=== PATIENT | female | born 1965 | race Two or more races ===

== ENCOUNTER 2020-01-10 14:36 | Inpatient (IN) | payer BC, MEDICAID ==
[~2020-01-10] VITALS: Ht 154.9 cm; Wt 100.9 kg
--- NOTE | 2020-01-10 14:46 | NUR ---
PT 83% IN TRIAGE, PUT ON 5L NC NOW AT 95%
[2020-01-10] MEDS ORDERED: ACETAMINOPHEN 500 MG TABLET ONE (15:22)
[2020-01-10] MEDS ORDERED: DEXAMETHASONE 4 MG/ML, 1ML ONE (15:22)
[2020-01-10] MEDS ORDERED: CEFTRIAXONE PMX 1GM/50ML 50 ML ONE (15:24)
[2020-01-10] MEDS ORDERED: DOXYCYCLINE 100MG TABLET ONE (15:25)
[2020-01-10] MEDS ORDERED: ONDANSETRON 2MG/ML, 2ML ONE (15:28)
[2020-01-10] MEDS ORDERED: MORPHINE SULFATE 4 MG/ML, 1ML ONE (15:28)
[2020-01-10] MEDS ORDERED: ACETAMINOPHEN 500 MG TABLET PO ONE (15:30)
[2020-01-10] MEDS ORDERED: DEXAMETHASONE 4 MG/ML, 1ML IVPush ONE (15:30)
[2020-01-10] MEDS ORDERED: ONDANSETRON 2MG/ML, 2ML IVPush ONE (15:30)
[2020-01-10] MEDS ORDERED: MORPHINE SULFATE 4 MG/ML, 1ML IVPush ONE (15:30)
[2020-01-10] MEDS ORDERED: CEFTRIAXONE PMX 1GM/50ML 50 ML IV ONE (15:30)
[2020-01-10] MEDS ORDERED: DOXYCYCLINE 100MG TABLET PO ONE (15:30)
[2020-01-10] MEDS ORDERED: SODIUM CHLORIDE 0.9% 1,000ML IVBOLUS ONE (15:30)
--- NOTE | 2020-01-10 15:54 | NUR ---
PT BIB POV. PT REPORTS HAVING FEVER AND N/V/D. PT ALSO REPORTS HAVING +COVID TEST LAST SUNDAY. PT ALSO IS HAVING 9/10 ABD PAIN IN ALL QUADRANTS. PT RESTING IN GURNEY, PT O2 SAT IS CURRENTLY 93% ON 5L NC. PER PT NO NEEDS AT THIS TIME.
[2020-01-10 16:01] LABS: ALANINE AMINOTRANSFERASE 26 U/L (12-78); ALBUMIN 2.9 g/dL (3.4-5.0); ANION GAP 8 mmol/L (5-15); CALCIUM 8.9 mg/dL (8.5-10.1); CHLORIDE 107 mmol/L (98-107); CREATININE 0.58 mg/dL (0.55-1.02)
[2020-01-10 16:08] LABS: ALKALINE PHOSPHATASE 103 U/L (45-117); BILIRUBIN,TOTAL 0.6 mg/dL (0.2-1.0); TOTAL PROTEIN 7.2 g/dL (6.4-8.2)
[2020-01-10 16:19] LABS: BASOPHILS % (AUTO) 0 % (0-1); EOSINOPHILS % (AUTO) 0 % (1-7); LYMPHOCYTES % (AUTO) 8 % (22-44); MEAN CORPUSCULAR HEMOGLOBIN 27.8 pg (27.0-34.8); MEAN CORPUSCULAR HGB CONC 33.1 g/dL (32.4-35.8); MEAN PLATELET VOLUME 8.5 fL (7.4-10.4); MONOCYTES % (AUTO) 7 % (2-9); NEUTROPHILS % (AUTO) 86 % (42-75); PLATELET COUNT 250 x10^3/uL (130-400); RED BLOOD COUNT 4.71 x10^6/uL (3.82-5.3); RED CELL DISTRIBUTION WIDTH 17.3 % (9.6-15.2)
[2020-01-10 16:29] LABS: D-DIMER (DIC) 0.33 ug/mlFEU (0.00-0.52)
[2020-01-10] MEDS ORDERED: ENOXAPARIN 40 MG/0.4 ML SQ SCH (16:30)
[2020-01-10] MEDS ORDERED: POTASSIUM CHLORIDE 20 MEQ TAB.ER.PRT PO ONE (16:30)
[2020-01-10] MEDS ORDERED: ACETAMINOPHEN 325 MG TABLET PO PRN (16:30)
[2020-01-10] MEDS: DEXAMETHASONE 4 MG/ML, 1ML IVPush SCH (16:30)
[2020-01-10] MEDS ORDERED: ONDANSETRON 2MG/ML, 2ML IVPush PRN (16:30)
[2020-01-10] MEDS ORDERED: ONDANSETRON ODT 4 MG PO PRN (16:30)
[2020-01-10] MEDS ORDERED: TRAZODONE 50MG TABLET PO PRN (16:30)
[2020-01-10] MEDS ORDERED: ENOXAPARIN 40 MG/0.4 ML ONE (16:46)
[2020-01-10] MEDS ORDERED: POTASSIUM CHLORIDE 20 MEQ TAB.ER.PRT ONE (16:47)
[2020-01-10] MEDS ORDERED: BENZONATATE 100 MG CAPSULE ONE (16:47)
[2020-01-10] MEDS ORDERED: GUAIFENESIN 200 MG TABLET ONE ×2 (16:48→20:33)
[2020-01-10] MEDS: GUAIFENESIN 200 MG TABLET PO SCH ×2 (16:54→20:39)
[2020-01-10] MEDS: BENZONATATE 100 MG CAPSULE PO SCH (16:54)
[2020-01-10 17:10] LABS: MD NO
[2020-01-10] MEDS ORDERED: REMDESIVIR 200 MG in SODIUM CHLORIDE 0.9% 250 ML IVPB ONE (17:30)
[2020-01-10] MEDS ORDERED: ASCORBIC ACID 500 MG TABLET ONE (17:31)
[2020-01-10] MEDS: ASCORBIC ACID 500 MG TABLET PO SCH (17:36)
[2020-01-10] MEDS ORDERED: DIPHENOXYLATE/ATROPINE TABLET PO PRN (18:30)
[2020-01-10] MEDS: ENOXAPARIN 30 MG/0.3 ML SQ SCH (18:30)
[2020-01-10] MEDS ORDERED: GABA300C PO (19:23)
[2020-01-10] MEDS ORDERED: BUPR75TA6 PO (19:23)
[2020-01-10] MEDS ORDERED: ESCI10TA PO (19:23)
[2020-01-10] MEDS ORDERED: SACU1TAB7 PO (19:23)
--- NOTE | 2020-01-10 19:37 | NUR ---
PT RESTING IN GURNEY, NO NEEDS AT THIS TIME. NO CONC SWEETS DIET MEAL PROVIDED TO PT.
--- NOTE | 2020-01-10 20:09 | NUR ---
PATIENT AMBUATORY IN ROOM TO COMMODE
[2020-01-10] MEDS ORDERED: MELATONIN 5 MG TABLET ONE (20:33)
[2020-01-10] MEDS: MELATONIN 5 MG TABLET PO SCH (20:39)
[2020-01-10] MEDS: INSULIN LISPRO 100 UNITS/ML, PEN SQ-INSULIN SCH (21:09)
--- NOTE | 2020-01-10 21:35 | NUR ---
ATTEMPTED TO GIVE REPORT TO DARELL, PER [employer], SHE IS UNAVAILABLE CURRENTLY. WILL ATTEMPT TO CALL AGAIN IN 10 MINUTES.
--- NOTE | 2020-01-10 21:46 | NUR ---
ATTEMPTED TO CALL JENNA LOZOYA AGAIN. PER CHANGE LEAD RN STILL UNAVAILABLE.
--- NOTE | 2020-01-10 22:01 | NUR ---
ATTEMPTED TO CALL REPORT TO JENNA LOZOYA. PLACED ON HOLD FOR EXTENDED TIME, WILL ATTEMPT TO CALL AGAIN.
--- NOTE | 2020-01-10 22:05 | NUR ---
PER LORI YUAN HE WILL TRANSFER ME TO CHARGE NURSE TO GIVE REPORT. PLACED ON HOLD FOR OVER 5 MINUTES. CALLED BACK, PER KWABENA CHARGE NURSE IS BUSY, KWABENA WILL TRY AND FIND SOMEONE ELSE TO GIVE REPORT TO.
--- NOTE | 2020-01-10 22:16 | NUR ---
REPORT CALLED AND GIVEN TO JENNA LOZOYA.
[2020-01-10 22:55] VITALS: BP 129/70
[2020-01-10] MEDS ORDERED: OMEP20CA20 PO (23:34)
[2020-01-10] MEDS ORDERED: ROSU20TA29 PO (23:34)
[2020-01-10] MEDS ORDERED: IBUP-1223 PO (23:34)
[2020-01-10] MEDS ORDERED: AMIT25TA PO (23:34)
[2020-01-10] MEDS ORDERED: CANA1TAB8 PO (23:34)
[2020-01-10] MEDS ORDERED: TORS5TAB4 PO (23:34)
[2020-01-11] MEDS: BENZONATATE 100 MG CAPSULE PO SCH ×3 (01:17→17:47)
[2020-01-11 02:11] VITALS: BP 120/66
[2020-01-11] MEDS: DEXAMETHASONE 4 MG/ML, 1ML IVPush SCH ×2 (04:30→17:47)
[2020-01-11 05:41] LABS: BASOPHILS % (AUTO) 0 % (0-1); EOSINOPHILS % (AUTO) 0 % (1-7); LYMPHOCYTES % (AUTO) 11 % (22-44); MEAN CORPUSCULAR HEMOGLOBIN 27.7 pg (27.0-34.8); MEAN CORPUSCULAR HGB CONC 32.5 g/dL (32.4-35.8); MEAN PLATELET VOLUME 8.3 fL (7.4-10.4); MONOCYTES % (AUTO) 7 % (2-9); NEUTROPHILS % (AUTO) 82 % (42-75); PLATELET COUNT 245 x10^3/uL (130-400); RED BLOOD COUNT 4.56 x10^6/uL (3.82-5.3); RED CELL DISTRIBUTION WIDTH 17.2 % (9.6-15.2)
[2020-01-11 05:44] LABS: INTERNATIONAL NORMALIZED RATIO 0.94 (0.93-1.1)
[2020-01-11 05:49] LABS: ALBUMIN 2.5 g/dL (3.4-5.0); ANION GAP 5 mmol/L (5-15); CALCIUM 8.6 mg/dL (8.5-10.1); CHLORIDE 113 mmol/L (98-107); MD NO
[2020-01-11 05:52] LABS: ALANINE AMINOTRANSFERASE 24 U/L (12-78); ALKALINE PHOSPHATASE 94 U/L (45-117); BILIRUBIN,TOTAL 0.4 mg/dL (0.2-1.0); CREATININE 0.51 mg/dL (0.55-1.02); TOTAL PROTEIN 6.5 g/dL (6.4-8.2)
[2020-01-11] MEDS: GUAIFENESIN 200 MG TABLET PO SCH ×4 (06:24→20:41)
[2020-01-11] MEDS: ENOXAPARIN 30 MG/0.3 ML SQ SCH ×2 (06:25→18:12)
[2020-01-11] MEDS: INSULIN LISPRO 100 UNITS/ML, PEN SQ-INSULIN SCH ×4 (06:29→20:42)
[2020-01-11 07:54] VITALS: BP 139/61
[2020-01-11] MEDS ORDERED: GABAPENTIN 300 MG CAPSULE PO PRN (08:00)
[2020-01-11] MEDS ORDERED: IBUPROFEN 800 MG TABLET PO PRN (08:00)
[2020-01-11] MEDS: METFORMIN HCL PO SCH ×2 (09:00→20:42)
[2020-01-11] MEDS: CANAGLIFLOZIN PO SCH ×2 (09:00→20:42)
[2020-01-11] MEDS: ASCORBIC ACID 500 MG TABLET PO SCH ×2 (10:04→18:00)
[2020-01-11] MEDS: OMEPRAZOLE 20 MG CAPSULE.DR PO SCH (10:05)
[2020-01-11] MEDS: CHOLECALCIFEROL 5,000u TAB PO SCH (10:05)
[2020-01-11] MEDS: TORSEMIDE 20 MG TABLET PO SCH (10:05)
[2020-01-11] MEDS: ESCITALOPRAM 10MG TABLET PO SCH (10:05)
[2020-01-11] MEDS: ZINC SULFATE 220 MG CAPSULE PO SCH (10:44)
[2020-01-11] MEDS: BUPROPION 75 MG TABLET PO SCH ×2 (10:44→20:41)
[2020-01-11 14:08] VITALS: BP 118/66
[2020-01-11] MEDS: CEFTRIAXONE PMX 2GM/50ML 50 ML IVPB SCH (18:13)
[2020-01-11 19:17] VITALS: BP 131/77
[2020-01-11 19:25] VITALS: BP 153/80
[2020-01-11] MEDS: AZITHROMYCIN 500 MG in SODIUM CHLORIDE 0.9% 250 ML IV SCH (20:22)
[2020-01-11] MEDS: AMITRIPTYLINE 25 MG TABLET PO SCH (20:41)
[2020-01-11] MEDS: MELATONIN 5 MG TABLET PO SCH (20:41)
[2020-01-11] MEDS: REMDESIVIR 100 MG in SODIUM CHLORIDE 0.9% 250 ML IVPB SCH (22:09)
[2020-01-12] MEDS: BENZONATATE 100 MG CAPSULE PO SCH ×3 (00:30→16:14)
[2020-01-12] MEDS: DEXAMETHASONE 4 MG/ML, 1ML IVPush SCH ×2 (04:24→16:14)
[2020-01-12 04:29] VITALS: BP 109/45
[2020-01-12] MEDS: GUAIFENESIN 200 MG TABLET PO SCH ×4 (06:13→20:04)
[2020-01-12] MEDS: ENOXAPARIN 30 MG/0.3 ML SQ SCH ×2 (06:14→17:33)
[2020-01-12 07:09] VITALS: BP 120/62
[2020-01-12] MEDS: ASCORBIC ACID 500 MG TABLET PO SCH ×2 (08:25→16:14)
[2020-01-12] MEDS: TORSEMIDE 20 MG TABLET PO SCH (08:25)
[2020-01-12] MEDS: BUPROPION 75 MG TABLET PO SCH ×2 (08:25→20:04)
[2020-01-12] MEDS: ZINC SULFATE 220 MG CAPSULE PO SCH (08:26)
[2020-01-12] MEDS: CHOLECALCIFEROL 5,000u TAB PO SCH (08:26)
[2020-01-12] MEDS: OMEPRAZOLE 20 MG CAPSULE.DR PO SCH (08:26)
[2020-01-12] MEDS: ESCITALOPRAM 10MG TABLET PO SCH (08:26)
[2020-01-12] MEDS: INSULIN LISPRO 100 UNITS/ML, PEN SQ-INSULIN SCH ×4 (08:36→20:04)
[2020-01-12] MEDS: METFORMIN HCL PO SCH ×2 (08:36→20:05)
[2020-01-12] MEDS: CANAGLIFLOZIN PO SCH ×2 (08:36→20:05)
[2020-01-12 12:06] VITALS: BP 103/60
[2020-01-12] MEDS: CEFTRIAXONE PMX 2GM/50ML 50 ML IVPB SCH (17:32)
[2020-01-12 19:19] VITALS: BP 125/70
[2020-01-12] MEDS: AZITHROMYCIN 500 MG in SODIUM CHLORIDE 0.9% 250 ML IV SCH (20:04)
[2020-01-12] MEDS: AMITRIPTYLINE 25 MG TABLET PO SCH (20:04)
[2020-01-12] MEDS: MELATONIN 5 MG TABLET PO SCH (20:04)
[2020-01-12] MEDS: REMDESIVIR 100 MG in SODIUM CHLORIDE 0.9% 250 ML IVPB SCH (23:07)
[2020-01-13] MEDS: BENZONATATE 100 MG CAPSULE PO SCH ×3 (00:30→16:39)
[2020-01-13 01:07] VITALS: BP 111/67
[2020-01-13] MEDS: DEXAMETHASONE 4 MG/ML, 1ML IVPush SCH ×2 (04:28→16:39)
[2020-01-13] MEDS: GUAIFENESIN 200 MG TABLET PO SCH ×4 (06:00→20:29)
[2020-01-13] MEDS: ENOXAPARIN 30 MG/0.3 ML SQ SCH ×2 (06:00→17:41)
[2020-01-13 07:52] VITALS: BP 134/68
[2020-01-13] MEDS: OMEPRAZOLE 20 MG CAPSULE.DR PO SCH (08:23)
[2020-01-13] MEDS: INSULIN LISPRO 100 UNITS/ML, PEN SQ-INSULIN SCH ×4 (08:23→20:29)
[2020-01-13] MEDS: ASCORBIC ACID 500 MG TABLET PO SCH ×2 (08:23→16:39)
[2020-01-13] MEDS: TORSEMIDE 20 MG TABLET PO SCH (08:23)
[2020-01-13] MEDS: CANAGLIFLOZIN PO SCH ×2 (08:24→20:30)
[2020-01-13] MEDS: METFORMIN HCL PO SCH ×2 (08:24→20:30)
[2020-01-13] MEDS: CHOLECALCIFEROL 5,000u TAB PO SCH (08:24)
[2020-01-13] MEDS: ZINC SULFATE 220 MG CAPSULE PO SCH (08:24)
[2020-01-13] MEDS: BUPROPION 75 MG TABLET PO SCH ×2 (08:24→20:29)
[2020-01-13] MEDS: ESCITALOPRAM 10MG TABLET PO SCH (08:24)
[2020-01-13 12:33] VITALS: BP 131/78
[2020-01-13 14:05] LABS: ALBUMIN 2.9 g/dL (3.4-5.0); ANION GAP 12 mmol/L (5-15); CALCIUM 9.1 mg/dL (8.5-10.1); CHLORIDE 109 mmol/L (98-107)
[2020-01-13 14:08] LABS: ALANINE AMINOTRANSFERASE 28 U/L (12-78); ALKALINE PHOSPHATASE 105 U/L (45-117); BILIRUBIN,TOTAL 0.5 mg/dL (0.2-1.0); CREATININE 0.85 mg/dL (0.55-1.02); TOTAL PROTEIN 7.3 g/dL (6.4-8.2)
[2020-01-13] MEDS: CEFTRIAXONE PMX 2GM/50ML 50 ML IVPB SCH (16:39)
[2020-01-13 18:25] VITALS: BP 146/77
[2020-01-13] MEDS: AZITHROMYCIN 500 MG in SODIUM CHLORIDE 0.9% 250 ML IV SCH (20:28)
[2020-01-13] MEDS: MELATONIN 5 MG TABLET PO SCH (20:29)
[2020-01-13] MEDS: AMITRIPTYLINE 25 MG TABLET PO SCH (20:29)
[2020-01-13] MEDS: REMDESIVIR 100 MG in SODIUM CHLORIDE 0.9% 250 ML IVPB SCH (23:01)
[2020-01-14] MEDS: BENZONATATE 100 MG CAPSULE PO SCH ×3 (00:30→16:01)
[2020-01-14 00:50] VITALS: BP 109/63
[2020-01-14] MEDS: DEXAMETHASONE 4 MG/ML, 1ML IVPush SCH ×2 (04:17→16:01)
[2020-01-14] MEDS: GUAIFENESIN 200 MG TABLET PO SCH ×4 (05:57→20:07)
[2020-01-14] MEDS: ENOXAPARIN 30 MG/0.3 ML SQ SCH ×2 (05:57→18:44)
[2020-01-14 07:17] VITALS: BP 115/63
[2020-01-14] MEDS: CANAGLIFLOZIN PO SCH ×2 (09:00→20:07)
[2020-01-14] MEDS: METFORMIN HCL PO SCH ×2 (09:00→20:07)
[2020-01-14] MEDS: ASCORBIC ACID 500 MG TABLET PO SCH ×2 (09:26→16:01)
[2020-01-14] MEDS: ESCITALOPRAM 10MG TABLET PO SCH (09:26)
[2020-01-14] MEDS: BUPROPION 75 MG TABLET PO SCH ×2 (09:26→20:07)
[2020-01-14] MEDS: TORSEMIDE 20 MG TABLET PO SCH (09:28)
[2020-01-14] MEDS: OMEPRAZOLE 20 MG CAPSULE.DR PO SCH (09:28)
[2020-01-14] MEDS: ZINC SULFATE 220 MG CAPSULE PO SCH (09:29)
[2020-01-14] MEDS: CHOLECALCIFEROL 5,000u TAB PO SCH (09:29)
[2020-01-14] MEDS: INSULIN LISPRO 100 UNITS/ML, PEN SQ-INSULIN SCH ×4 (09:57→21:44)
[2020-01-14 11:19] LABS: ALANINE AMINOTRANSFERASE 33 U/L (12-78); ALBUMIN 2.8 g/dL (3.4-5.0); ANION GAP 11 mmol/L (5-15); CALCIUM 8.8 mg/dL (8.5-10.1); CHLORIDE 108 mmol/L (98-107); CREATININE 0.65 mg/dL (0.55-1.02)
[2020-01-14 11:21] LABS: ALKALINE PHOSPHATASE 95 U/L (45-117); BILIRUBIN,TOTAL 0.5 mg/dL (0.2-1.0); TOTAL PROTEIN 6.8 g/dL (6.4-8.2)
[2020-01-14 12:16] VITALS: BP_SYST 136
[2020-01-14] MEDS: CEFTRIAXONE PMX 2GM/50ML 50 ML IVPB SCH (16:01)
[2020-01-14 20:00] VITALS: BP 124/70
[2020-01-14] MEDS: AZITHROMYCIN 500 MG in SODIUM CHLORIDE 0.9% 250 ML IV SCH (20:06)
[2020-01-14] MEDS: MELATONIN 5 MG TABLET PO SCH (20:07)
[2020-01-14] MEDS: AMITRIPTYLINE 25 MG TABLET PO SCH (20:07)
[2020-01-14] MEDS ORDERED: REMDESIVIR 100 MG in SODIUM CHLORIDE 0.9% 250 ML IVPB ONE (23:00)
[2020-01-15] MEDS: BENZONATATE 100 MG CAPSULE PO SCH ×3 (00:49→16:32)
[2020-01-15 01:13] VITALS: BP 134/64
[2020-01-15] MEDS: DEXAMETHASONE 4 MG/ML, 1ML IVPush SCH ×2 (03:45→16:32)
[2020-01-15] MEDS: GUAIFENESIN 200 MG TABLET PO SCH ×3 (06:17→16:31)
[2020-01-15] MEDS: ENOXAPARIN 30 MG/0.3 ML SQ SCH (06:17)
[2020-01-15] MEDS ORDERED: ENOXAPARIN 30 MG/0.3 ML ONE (06:30)
[2020-01-15 08:00] VITALS: BP 120/73
[2020-01-15] MEDS: BUPROPION 75 MG TABLET PO SCH (08:08)
[2020-01-15] MEDS: OMEPRAZOLE 20 MG CAPSULE.DR PO SCH (08:08)
[2020-01-15] MEDS: ASCORBIC ACID 500 MG TABLET PO SCH ×2 (08:08→16:32)
[2020-01-15] MEDS: ESCITALOPRAM 10MG TABLET PO SCH (08:09)
[2020-01-15] MEDS: ZINC SULFATE 220 MG CAPSULE PO SCH (08:10)
[2020-01-15] MEDS: TORSEMIDE 20 MG TABLET PO SCH (08:10)
[2020-01-15] MEDS: CHOLECALCIFEROL 5,000u TAB PO SCH (08:10)
[2020-01-15] MEDS: METFORMIN HCL PO SCH (08:10)
[2020-01-15] MEDS: CANAGLIFLOZIN PO SCH (08:10)
[2020-01-15] MEDS: INSULIN LISPRO 100 UNITS/ML, PEN SQ-INSULIN SCH ×3 (08:38→16:38)
[2020-01-15] MEDS ORDERED: CHOL500045 PO (13:12)
[2020-01-15] MEDS ORDERED: DEXA6TAB6 PO (13:12)
[2020-01-15] MEDS ORDERED: ASCO500T9 PO (13:12)
[2020-01-15] MEDS ORDERED: MELA5TAB14 PO (13:12)
[2020-01-15] MEDS ORDERED: ZINC220C7 PO (13:12)
[2020-01-15 14:10] VITALS: BP 116/67
== END 2020-01-15 17:27 | disposition home or self-care (01) | DRG 177 ==
LOC: ED 15:10 → EDIP 16:07 → SUATTDRO 16:14 → 4EST 22:30
PROVIDERS: ADMIT Internal Medicine; ATTEND Internal Medicine
PROC: XW033E5 Introduction of Remdesivir Anti-infective into Peripheral Vein, Percutaneous Approach, New Technology Group 5 (ICD-10-PCS; principal; 2020-01-11)
DX: U07.1 COVID-19 (principal); J12.89 Other viral pneumonia; J96.01 Acute respiratory failure with hypoxia; E11.9 Type 2 diabetes mellitus without complications; E87.6 Hypokalemia; I11.0 Hypertensive heart disease with heart failure; I50.9 Heart failure, unspecified; M06.9 Rheumatoid arthritis, unspecified
CPT/HCPCS: 36415; 71045; 80053; 82728; 82962; 83036; 83605; 83615; 83735; 84145; 85025; 85049; 85379; 85384; 85610; 85730; 86140; 87040; 93005; 96372; 96374; 96375; 99291; G0378; J0456; J0696; J1100; J1650; J2405; J1815; J2270; J7030; J7050

== ENCOUNTER 2020-01-26 17:53 | Inpatient (IN) | payer BC ==
[~2020-01-26] VITALS: Ht 165.1 cm; Wt 99.0 kg
[~2020-01-26 17:53] MED LIST: AMIT25TA PO; ASCO500T9 PO; BUPR75TA6 PO; CANA1TAB8 PO; CHOL500045 PO; DEXA6TAB6 PO; ESCI10TA PO; GABA300C PO; IBUP-1223 PO; MELA5TAB14 PO; OMEP20CA20 PO; ROSU20TA29 PO; SACU1TAB7 PO; TORS5TAB4 PO; ZINC220C7 PO
--- NOTE | 2020-01-26 18:10 | NUR ---
Bib by luis from home for increased confusion/weakness. Known + covid and diabetic Luis reports A+Ox1, Hr 130, fsbs "high" On arrival patient knows name and wher she is. Hr 125, room air pox 94 but breathing 30/min Ecg obtained and placed on lunchroom monitor Provider at bedside
--- NOTE | 2020-01-26 18:15 | NUR ---
cxr at bedside
--- NOTE | 2020-01-26 18:18 | NUR ---
lab at bedside for full set of labs including blood cultures x2 as well as blood gas
--- NOTE | 2020-01-26 18:20 | NUR ---
CT CALLED TO EXPEDITE IMAGING. BOTH CT ROOMS BEING TERMINALLY CLEANED. PROVIDER MADE AWARE
[2020-01-26] MEDS ORDERED: PLEASE ENTER HEIGHT AND WEIGHT MC SCH (18:30)
[2020-01-26] MEDS ORDERED: SODIUM CHLORIDE 0.9% 1,000ML IVBOLUS ONE ×2 (18:30→19:30)
[2020-01-26 18:44] LABS: PH, VENOUS 7.393 pH (7.320-7.420)
[2020-01-26 18:45] LABS: FIO2 ROOM AIR %
--- NOTE | 2020-01-26 18:57 | NUR ---
straight catherized with mariya emt as psychological assistant. sample walked to lab
[2020-01-26 18:59] LABS: ALANINE AMINOTRANSFERASE 50 U/L (12-78); ALBUMIN 3.5 g/dL (3.4-5.0); ANION GAP 14 mmol/L (5-15); CHLORIDE 110 mmol/L (98-107); CREATININE 1.25 mg/dL (0.55-1.02)
[2020-01-26 19:01] LABS: BASOPHILS % (AUTO) 0 % (0-1); EOSINOPHILS % (AUTO) 0 % (1-7); LYMPHOCYTES % (AUTO) 7 % (22-44); MEAN CORPUSCULAR HEMOGLOBIN 28.3 pg (27.0-34.8); MEAN CORPUSCULAR HGB CONC 31.2 g/dL (32.4-35.8); MEAN PLATELET VOLUME 10.2 fL (7.4-10.4); MONOCYTES % (AUTO) 7 % (2-9); NEUTROPHILS % (AUTO) 86 % (42-75); PLATELET COUNT 361 x10^3/uL (130-400); RED BLOOD COUNT 5.75 x10^6/uL (3.82-5.3); RED CELL DISTRIBUTION WIDTH 18.6 % (9.6-15.2)
[2020-01-26 19:03] LABS: ALKALINE PHOSPHATASE 207 U/L (45-117); BILIRUBIN,TOTAL 0.7 mg/dL (0.2-1.0); TOTAL PROTEIN 7.7 g/dL (6.4-8.2); TROPONIN I < 0.015 ng/mL (0.000-0.045)
[2020-01-26 19:06] LABS: MD NO
[2020-01-26 19:13] LABS: MICROSCOPIC INDICATED
[2020-01-26] MEDS ORDERED: LORazepam 2 MG/ML, 1ML ONE (19:20)
--- NOTE | 2020-01-26 19:23 | NUR ---
Provider to bedside for patient confusion/agitation (attempting to bite piv out of arm) To medicate with ativan 2nd liter of ns started per provider sitte rto beside to assure patient safety
[2020-01-26 19:24] LABS: AMPHETAMINE SCREEN, URINE Negative (Negative); BARBITURATE SCREEN, URINE Negative (Negative); BENZODIAZEPINE SCREEN, URINE Negative (Negative); CANNABINOID SCREEN, URINE Negative (Negative); COCAINE SCREEN, URINE Negative (Negative); METHADONE SCREEN, URINE Negative (Negative); OPIATE SCREEN, URINE Negative (Negative)
--- NOTE | 2020-01-26 19:25 | NUR ---
medicated per emar for agitation
[2020-01-26] MEDS ORDERED: INSULIN REGULAR 100 UNITS/ML, 3ML VIAL SQ-INSULIN ONE (19:30)
[2020-01-26] MEDS ORDERED: LORazepam 2 MG/ML, 1ML IVPush ONE (19:30)
[2020-01-26] MEDS ORDERED: CEFTRIAXONE PMX 1GM/50ML 50 ML IV ONE (19:30)
[2020-01-26] MEDS ORDERED: REGULAR INSULIN 100 UNITS in SODIUM CHLORIDE 0.9% 99 ML IV PRN ×2 (19:30→22:00)
[2020-01-26] MEDS ORDERED: INSULIN SINGLE DOSE, ER ONE (19:45)
[2020-01-26] MEDS ORDERED: CEFTRIAXONE PMX 1GM/50ML 50 ML ONE ×2 (19:45→20:12)
[2020-01-26] MEDS ORDERED: ZIPRASIDONE 20 MG INJ IM ONE ×3 (19:52→20:30)
--- NOTE | 2020-01-26 20:15 | NUR ---
Pt's called for update. RN not available. requesting to be called when able. [place] Mccauleyroberto () [phone]. Daughter to call shortly as well.
--- NOTE | 2020-01-26 20:37 | NUR ---
MT: DAUGHTER (HAYLEE) WOULD LIKE TO BE UPDATED WITH [facility] [phone]
[2020-01-26] MEDS ORDERED: DEXTROSE 50%, 50ML SYRINGE ONE (20:44)
[2020-01-26 21:02] LABS: ANION GAP 14 mmol/L (5-15); CALCIUM 9.7 mg/dL (8.5-10.1); CHLORIDE 118 mmol/L (98-107); CREATININE 1.28 mg/dL (0.55-1.02)
[2020-01-26] MEDS ORDERED: ONDANSETRON ODT 4 MG PO PRN (22:00)
[2020-01-26] MEDS ORDERED: hydrALAzine 20 MG/ML, 1ML IVPush PRN (22:00)
[2020-01-26] MEDS ORDERED: MORPHINE SULFATE 4 MG/ML, 1ML IVPush PRN (22:00)
[2020-01-26] MEDS ORDERED: BISACODYL 10 MG SUPP PR PRN (22:00)
[2020-01-26] MEDS ORDERED: SODIUM CHLORIDE 0.9% 1,000 ML IV SCH (22:00)
[2020-01-26] MEDS ORDERED: D5%-0.45NACL+KCL 20MEQ 1,000 ML IV SCH (22:00)
[2020-01-26] MEDS ORDERED: PROMETHAZINE 25 MG/ML, 1ML IM PRN (22:00)
[2020-01-26] MEDS ORDERED: ACETAMINOPHEN 325 MG TABLET PO PRN (22:00)
[2020-01-26] MEDS ORDERED: ONDANSETRON 2MG/ML, 2ML IV PRN (22:00)
[2020-01-26] MEDS ORDERED: OXYcodone IR 5MG TABLET PO PRN (22:00)
[2020-01-26] MEDS ORDERED: DOCUSATE 100 MG CAPSULE PO PRN (22:00)
[2020-01-26] MEDS: ENOXAPARIN 40 MG/0.4 ML SQ SCH (22:00)
[2020-01-26] MEDS ORDERED: POLYETHYLENE GLYCOL 17 GM PACKET PO PRN (22:00)
[2020-01-26] MEDS: METOPROLOL TARTRATE 25 MG TAB PO SCH (22:30)
[2020-01-26 22:49] LABS: ANION GAP 10 mmol/L (5-15); CALCIUM 9.9 mg/dL (8.5-10.1); CHLORIDE 121 mmol/L (98-107); CREATININE 1.31 mg/dL (0.55-1.02)
[2020-01-26 23:00] LABS: FREE T4 (FREE THYROXINE) 1.18 ng/dL (0.76-1.46)
[2020-01-26] MEDS ORDERED: LORazepam 2 MG/ML, 1ML IVPush PRN (23:30)
[2020-01-27] MEDS ORDERED: ZIPRASIDONE 20 MG INJ IM ONE ×4 (01:41→11:08)
[2020-01-27 03:01] LABS: CALCIUM 9.3 mg/dL (8.5-10.1); CHLORIDE 130 mmol/L (98-107); CREATININE 1.06 mg/dL (0.55-1.02)
[2020-01-27 03:09] LABS: ANION GAP 5 mmol/L (5-15)
[2020-01-27] MEDS: DEXTROSE 5% 1,000 ML IV SCH ×2 (03:30→11:57)
[2020-01-27] MEDS ORDERED: LORazepam 2 MG/ML, 1ML IVPush PRN (03:30)
[2020-01-27] MEDS: METOPROLOL TARTRATE 25 MG TAB PO SCH (03:34)
[2020-01-27 07:26] LABS: BASOPHILS % (AUTO) 1 % (0-1); EOSINOPHILS % (AUTO) 0 % (1-7); LYMPHOCYTES % (AUTO) 12 % (22-44); MEAN CORPUSCULAR HEMOGLOBIN 28.2 pg (27.0-34.8); MEAN CORPUSCULAR HGB CONC 32.1 g/dL (32.4-35.8); MEAN PLATELET VOLUME 9.4 fL (7.4-10.4); MONOCYTES % (AUTO) 10 % (2-9); NEUTROPHILS % (AUTO) 77 % (42-75); PLATELET COUNT 307 x10^3/uL (130-400); RED BLOOD COUNT 5.21 x10^6/uL (3.82-5.3); RED CELL DISTRIBUTION WIDTH 17.9 % (9.6-15.2)
[2020-01-27 07:37] LABS: ALANINE AMINOTRANSFERASE 39 U/L (12-78); ANION GAP 7 mmol/L (5-15); CALCIUM 9.5 mg/dL (8.5-10.1); CHLORIDE 130 mmol/L (98-107)
[2020-01-27 07:40] LABS: ALKALINE PHOSPHATASE 129 U/L (45-117); BILIRUBIN,TOTAL 0.4 mg/dL (0.2-1.0); CHOLESTEROL, TOTAL 175 mg/dL (140-239); CREATININE 0.85 mg/dL (0.55-1.02); HDL CHOL % 33 % (28-40); HDL CHOLESTEROL (DIRECT) 58 mg/dL (40-60); LDL CHOLESTEROL,CALCULATED 96 mg/dL (54-169); LDL/HDL RATIO 1.7 (0.5-3.0); TOTAL PROTEIN 6.5 g/dL (6.4-8.2); TRIGLYCERIDES 104 mg/dL (50-200); VLDL CHOLESTEROL 21 mg/dL (0-25)
[2020-01-27 08:58] LABS: MD SCAN
[2020-01-27 10:52] LABS: ANION GAP 5 mmol/L (5-15); CALCIUM 9.3 mg/dL (8.5-10.1); CHLORIDE 128 mmol/L (98-107)
[2020-01-27 10:54] LABS: CREATININE 0.75 mg/dL (0.55-1.02)
[2020-01-27] MEDS: SODIUM CHLORIDE FLUSH 10ML SYR IVF SCH ×2 (11:30→20:36)
[2020-01-27] MEDS ORDERED: GLUCAGON 1 MG IM PRN (11:30)
[2020-01-27] MEDS ORDERED: DEXTROSE 50%, 50ML SYRINGE IVPush PRN (11:30)
[2020-01-27] MEDS ORDERED: DEXTROSE 5% 500 ML IV SCH (11:30)
[2020-01-27] MEDS ORDERED: DEXTROSE 4 GM TAB.CHEW PO PRN (11:30)
[2020-01-27] MEDS ORDERED: INSULIN GLARGINE 100 UNITS/ML, PEN SQ-INSULIN SCH (11:30)
[2020-01-27] MEDS: AMPICILLIN/SULBACTAM 3 GM in SODIUM CHLORIDE 0.9% 100 ML IV SCH ×2 (11:56→20:32)
[2020-01-27] MEDS: INSULIN LISPRO 100 UNITS/ML, PEN SQ-INSULIN SCH ×6 (12:37→23:29)
[2020-01-27] MEDS: GABAPENTIN 300 MG CAPSULE PO SCH ×3 (14:00→20:32)
--- NOTE | 2020-01-27 14:01 | NUR ---
TF per RD recs: Vital AF 1.2 w/ end goal rate @55mL/hr Addendum: 01/27/20 at [address] Amended: Links added.
[2020-01-27 15:06] LABS: ANION GAP 6 mmol/L (5-15); CALCIUM 9.2 mg/dL (8.5-10.1); CHLORIDE 125 mmol/L (98-107); CREATININE 0.94 mg/dL (0.55-1.02)
[2020-01-27] MEDS: BUPROPION SR 150 MG TABLET PO SCH ×2 (16:34→20:32)
[2020-01-27] MEDS: ZIPRASIDONE 20 MG INJ IM PRN ×2 (16:35→23:22)
[2020-01-27] MEDS: METOPROLOL TARTRATE 50 MG TAB PO SCH (16:43)
[2020-01-27 19:07] LABS: CREATININE 0.76 mg/dL (0.55-1.02)
[2020-01-27 19:20] LABS: ANION GAP 4 mmol/L (5-15); CHLORIDE 123 mmol/L (98-107)
[2020-01-27] MEDS: ATORVASTATIN 80 MG TABLET PO SCH (20:32)
[2020-01-27] MEDS: INSULIN GLARGINE 100 UNITS/ML, PEN SQ-INSULIN SCH (20:33)
[2020-01-27] MEDS: ENOXAPARIN 40 MG/0.4 ML SQ SCH (20:39)
[2020-01-28] MEDS: AMPICILLIN/SULBACTAM 3 GM in SODIUM CHLORIDE 0.9% 100 ML IV SCH ×4 (02:35→23:00)
[2020-01-28] MEDS: METOPROLOL TARTRATE 50 MG TAB PO SCH ×2 (05:13→17:00)
[2020-01-28] MEDS: INSULIN LISPRO 100 UNITS/ML, PEN SQ-INSULIN SCH ×7 (05:13→22:36)
[2020-01-28 05:49] LABS: BASOPHILS % (AUTO) 0 % (0-1); EOSINOPHILS % (AUTO) 0 % (1-7); LYMPHOCYTES % (AUTO) 14 % (22-44); MEAN CORPUSCULAR HEMOGLOBIN 27.9 pg (27.0-34.8); MEAN CORPUSCULAR HGB CONC 31.5 g/dL (32.4-35.8); MEAN PLATELET VOLUME 9.4 fL (7.4-10.4); MONOCYTES % (AUTO) 6 % (2-9); NEUTROPHILS % (AUTO) 79 % (42-75); PLATELET COUNT 226 x10^3/uL (130-400); RED CELL DISTRIBUTION WIDTH 18.4 % (9.6-15.2)
[2020-01-28 05:52] LABS: MD NO
[2020-01-28 05:58] LABS: ANION GAP 4 mmol/L (5-15); CALCIUM 8.9 mg/dL (8.5-10.1); CHLORIDE 121 mmol/L (98-107)
[2020-01-28 05:59] LABS: CREATININE 0.73 mg/dL (0.55-1.02)
[2020-01-28] MEDS: BUPROPION SR 150 MG TABLET PO SCH ×2 (07:56→22:27)
[2020-01-28] MEDS: GABAPENTIN 300 MG CAPSULE PO SCH ×3 (07:56→22:27)
[2020-01-28] MEDS: INSULIN GLARGINE 100 UNITS/ML, PEN SQ-INSULIN SCH ×2 (08:19→22:36)
[2020-01-28] MEDS: SODIUM CHLORIDE FLUSH 10ML SYR IVF SCH ×2 (08:22→21:00)
[2020-01-28 12:10] VITALS: BP 134/52
[2020-01-28] MEDS: ZIPRASIDONE 20 MG INJ IM PRN (13:07)
[2020-01-28 14:00] VITALS: BP 127/73
[2020-01-28 17:38] VITALS: BP 144/75
[2020-01-28 19:11] VITALS: BP 128/75
[2020-01-28] MEDS: ENOXAPARIN 40 MG/0.4 ML SQ SCH (22:00)
[2020-01-28] MEDS: ATORVASTATIN 80 MG TABLET PO SCH (22:27)
[2020-01-29 01:37] VITALS: BP 144/67
[2020-01-29] MEDS: METOPROLOL TARTRATE 50 MG TAB PO SCH ×2 (05:35→17:14)
[2020-01-29] MEDS: AMPICILLIN/SULBACTAM 3 GM in SODIUM CHLORIDE 0.9% 100 ML IV SCH ×3 (06:10→17:14)
[2020-01-29 06:27] LABS: BASOPHILS % (AUTO) 1 % (0-1); EOSINOPHILS % (AUTO) 3 % (1-7); LYMPHOCYTES % (AUTO) 29 % (22-44); MEAN CORPUSCULAR HGB CONC 31.8 g/dL (32.4-35.8); MEAN PLATELET VOLUME 9.6 fL (7.4-10.4); MONOCYTES % (AUTO) 6 % (2-9); NEUTROPHILS % (AUTO) 63 % (42-75); PLATELET COUNT 178 x10^3/uL (130-400); RED BLOOD COUNT 4.42 x10^6/uL (3.82-5.3)
[2020-01-29 06:30] LABS: MD NO
[2020-01-29 06:32] LABS: ANION GAP 4 mmol/L (5-15); CALCIUM 8.4 mg/dL (8.5-10.1); CHLORIDE 115 mmol/L (98-107)
[2020-01-29] MEDS: INSULIN LISPRO 100 UNITS/ML, PEN SQ-INSULIN SCH ×3 (07:40→18:30)
[2020-01-29 07:41] VITALS: BP 124/66
[2020-01-29] MEDS: GABAPENTIN 300 MG CAPSULE PO SCH ×3 (08:55→21:47)
[2020-01-29] MEDS: BUPROPION SR 150 MG TABLET PO SCH ×2 (08:56→21:00)
[2020-01-29] MEDS: INSULIN GLARGINE 100 UNITS/ML, PEN SQ-INSULIN SCH ×2 (08:56→21:50)
[2020-01-29] MEDS: SODIUM CHLORIDE FLUSH 10ML SYR IVF SCH ×2 (09:00→21:30)
[2020-01-29 12:52] VITALS: BP 127/53
[2020-01-29 17:17] VITALS: BP 136/68
[2020-01-29 19:44] VITALS: BP 116/73
[2020-01-29] MEDS: ATORVASTATIN 80 MG TABLET PO SCH (21:30)
[2020-01-29] MEDS: ENOXAPARIN 40 MG/0.4 ML SQ SCH (21:51)
[2020-01-30] MEDS: AMPICILLIN/SULBACTAM 3 GM in SODIUM CHLORIDE 0.9% 100 ML IV SCH ×3 (00:23→11:15)
[2020-01-30] MEDS: INSULIN LISPRO 100 UNITS/ML, PEN SQ-INSULIN SCH ×2 (00:30→06:40)
[2020-01-30 00:48] VITALS: BP 132/72
[2020-01-30] MEDS: METOPROLOL TARTRATE 50 MG TAB PO SCH (06:36)
[2020-01-30 07:00] VITALS: BP 129/63
[2020-01-30 07:37] LABS: ALBUMIN 2.4 g/dL (3.4-5.0); ANION GAP 4 mmol/L (5-15); BASOPHILS % (AUTO) 1 % (0-1); CALCIUM 8.3 mg/dL (8.5-10.1); CHLORIDE 111 mmol/L (98-107); EOSINOPHILS % (AUTO) 4 % (1-7); LYMPHOCYTES % (AUTO) 29 % (22-44); MEAN CORPUSCULAR HEMOGLOBIN 28.5 pg (27.0-34.8); MEAN CORPUSCULAR HGB CONC 32.3 g/dL (32.4-35.8); MEAN PLATELET VOLUME 9.4 fL (7.4-10.4); MONOCYTES % (AUTO) 7 % (2-9); NEUTROPHILS % (AUTO) 59 % (42-75); PLATELET COUNT 137 x10^3/uL (130-400); RED BLOOD COUNT 4.08 x10^6/uL (3.82-5.3); RED CELL DISTRIBUTION WIDTH 18.1 % (9.6-15.2)
[2020-01-30 07:41] LABS: MD NO
[2020-01-30 07:42] LABS: ALANINE AMINOTRANSFERASE 65 U/L (12-78); ALKALINE PHOSPHATASE 126 U/L (45-117); BILIRUBIN,TOTAL 1.2 mg/dL (0.2-1.0); CREATININE 0.38 mg/dL (0.55-1.02); TOTAL PROTEIN 5.2 g/dL (6.4-8.2)
[2020-01-30] MEDS: GABAPENTIN 300 MG CAPSULE PO SCH (08:13)
[2020-01-30] MEDS: BUPROPION SR 150 MG TABLET PO SCH (08:13)
[2020-01-30] MEDS: INSULIN GLARGINE 100 UNITS/ML, PEN SQ-INSULIN SCH (08:13)
[2020-01-30] MEDS: SODIUM CHLORIDE FLUSH 10ML SYR IVF SCH (09:00)
== END 2020-01-30 11:47 | disposition home health service (06) | DRG 682 ==
LOC: ED 19:45 → EDIP 20:04 → ICU 21:01 → CCU 01-27 12:13 → 4NE 01-28 13:45 → DCLOUNGE 01-30 11:45
PROVIDERS: ADMIT Internal Medicine; ATTEND Hospitalist
PROC: 0T9B70Z Drainage of Bladder with Drainage Device, Via Natural or Artificial Opening (ICD-10-PCS; principal; 2020-01-26)
DX: N17.0 Acute kidney failure with tubular necrosis (principal); E11.00 Type 2 diabetes mellitus with hyperosmolarity without nonketotic hyperglycemic-hyperosmolar coma (NKHHC); G93.41 Metabolic encephalopathy; E87.0 Hyperosmolality and hypernatremia; E66.01 Morbid (severe) obesity due to excess calories; E78.5 Hyperlipidemia, unspecified; E86.0 Dehydration; I10 Essential (primary) hypertension; M06.9 Rheumatoid arthritis, unspecified; Z66 Do not resuscitate; Z68.36 Body mass index [BMI] 36.0-36.9, adult; Z82.49 Family history of ischemic heart disease and other diseases of the circulatory system; Z83.3 Family history of diabetes mellitus; Z87.442 Personal history of urinary calculi; Z90.710 Acquired absence of both cervix and uterus
CPT/HCPCS: 36415; 70450; 71045; 74018; 80048; 80053; 80061; 80307; 80320; 81001; 82140; 82803; 82947; 82962; 83036; 83605; 83690; 83735; 83930; 84100; 84439; 84443; 84484; 85025; 87040; 87081; 93005; 96374; 96375; 99291; G0378; J0295; J0696; J1650; J1815; J3486; J7070; G0480; J0360; J2060; J2270; J7030; J7060